=== PATIENT | female | born 1960 | race Caucasian/White ===

== ENCOUNTER 2018-12-20 13:15 | Emergency (ER) | payer OTHER, MEDICAID, SELFPAY ==
[2018-12-20 13:31] VITALS: BP 150/92; PULSE 94; RESP 20; TEMP 37.4; O2SAT 96; BMI 22.7
[2018-12-20 13:47] VITALS: BP 157/84; PULSE 109; RESP 18; O2SAT 99
--- NOTE | 2018-12-20 13:53 | ED_ITS ---
HPI - Skin/Abscess/Foreign Bdy <Myah Navarro, PER DIEM NURSE-BC - Last Filed: 12/20/18 19:43> General Chief complaint: Skin/Abscess/Foreign Body Stated complaint: states pain bump under lt ear x 1month Time Seen by Provider: 12/20/18 13:41 Source: patient Mode of arrival: ambulatory History of Present Illness HPI narrative: Patient is a 58-year-old female who presents with her caregiver for chief complaint of a bump under her right ear. She states she has been being treated for parotitis And has taken several different antibiotics. Of note she does have a seizure history disorder and is on phenobarbital as well as Lamictal. She presented and told the triage nurse that she has seizures in waiting rooms. After stating that she has seizures when she is in the waiting room, patient stated she felt a seizure coming on and was brought back to the emergency department. She states she has been having fevers that are un recorded, but none today. She states that she is having so much diarrhea she has difficulty with her medications. She states she has been having more seizures since this started. She states that they called would be, and the ER physician directed them to come to this facility as we have ENT on-call. The patient did not have any incontinence of bowel or bladder. Related Data Home Medications Medication Instructions Recorded Confirmed [id number]-[id number] 1 - 2 tab PO PRN PRN #0 06/15/17 [Excedrin Extra Strength] fluoxetine 80 mg PO QDAY #0 06/15/17 gabapentin 800 mg PO BID #0 06/15/17 lamotrigine [Lamictal] 200 mg PO BID #0 06/15/17 omeprazole 20 mg PO QDAY #0 06/15/17 phenobarbital 12.5 ml PO BID #0 06/15/17 Allergies Allergy/AdvReac Type Severity Reaction Status Date / Time phenytoin [From DILANTIN] Allergy Severe Rash Verified 12/20/18 13:30 carbamazepine [From TEGRETOL] Allergy Intermediate RASH Verified 12/20/18 13:30 ibuprofen [IBUPROFEN] Allergy Mild RASH AND Verified 12/20/18 13:30 STOMACH PAIN ketorolac [From TORADOL] Allergy Mild RASH Verified 12/20/18 13:30 cephalexin [CEPHALEXIN] Allergy Unknown Verified 12/20/18 13:30 divalproex sodium Allergy Unknown Verified 12/20/18 13:30 [From DEPAKOTE] erythromycin base Allergy Unknown Verified 12/20/18 13:30 [ERYTHROMYCIN BASE] naproxen [NAPROXEN] Allergy Unknown Verified 12/20/18 13:30 Review of Systems <LYNN Brownlee - Last Filed: 12/20/18 19:43> Review of Systems GENERAL: Denies chills, fatigue, malaise, fever, sweats. HEENT: See HPI RESPIRATORY: Denies dyspnea, cough, wheezing, hemoptysis, sputum. CARDIOVASCULAR: Denies chest pain, palpitations, orthopnea, edema, GASTROINTESTINAL: Denies nausea, vomiting, abdominal pain, diarrhea, constipation, melena. : Denies dysuria, frequency, incontinence, hematuria, urinary retention. MUSCULOSKELETAL: denies weakness, joint pain, or bony pain SKIN: Denies rash, skin lesions, or other NEUROLOGIC: see HPI PSYCHIATRIC: No concerning psychosocial issues. 12 point review of systems is negative except for those stated above PFSH <LYNN Brownlee - Last Filed: 12/20/18 19:43> Social History Smoking Status: Current every day smoker Social History Smoking Status: Current every day smoker Exam <LYNN Brownlee - Last Filed: 12/20/18 19:43> Narrative Exam Narrative: GENERAL: This is a well-nourished, well-developed patient, l jesús on stretcher HEAD: Atraumatic. Normocephalic. No temporal or scalp tenderness. EYES: Pupils equal round and reactive. Extraocular motions intact. No scleral icterus. No injection or drainage. ENT: Nose without bleeding, purulent drainage or septal hematoma. Throat without erythema, tonsillar hypertrophy or exudate. Uvula midline. Airway patent. no blood observed in oropharynx. No laceration to tongue. swelling noted right parotid gland. NECK: Trachea midline. No JVD or lymphadenopathy. Supple, nontender, no meningeal signs. CARDIOVASCULAR: Regular rate and rhythm RESPIRATORY: Clear to auscultation. Breath sounds equal bilaterally. No wheezes, rales, or rhonchi. No cough. No stridor. No increased respiratory effort. GASTROINTESTINAL: Abdomen soft, non-tender, nondistended. No hepato- splenomegaly, or palpable masses. No guarding. EXTREMITIES: No clubbing, cyanosis, or edema. No joint tenderness, effusion, or edema noted. BACK: Nontender without deformity or crepitance. No flank tenderness. NEURO: AOx3. Following all commands. No incontinence noted. Strength is equal upper and lower extremities bilaterally. SKIN: No rash or erythema. Initial Vital Signs Initial Vital Signs: Vital Signs Temperature 99.4 F 12/20/18 13:31 Pulse Rate 94 H 12/20/18 13:31 Respiratory Rate 20 12/20/18 13:31 Blood Pressure 150/92 H 12/20/18 13:31 Pulse Oximetry 96 12/20/18 13:31 <Myah Singh DO - Last Filed: 12/22/18 07:18> Initial Vital Signs Initial Vital Signs: Vital Signs Temperature 99.4 F 12/20/18 13:31 Pulse Rate 94 H 12/20/18 13:31 Respiratory Rate 20 12/20/18 13:31 Blood Pressure 150/92 H 12/20/18 13:31 Pulse Oximetry 96 12/20/18 13:31 Course <AJ Brownlee-BC - Last Filed: 12/20/18 19:43> Course Narrative: I checked with the patient several times throughout her emergency department stay. She repeatedly requested 2 mg of IV Dilaudid. I discussed with the patient that I was not having 2 mg IV Dilaudid on top of the Ativan that she received for her seizure activity. She pointed her tongue at me, to illustrate a bite ramses. There was no blood observed in her oropharynx and no laceration noted to her tongue. Records were obtained from [facility], and Solu-Medrol was given for the swelling noted on her left parotid gland. Prior to receiving imaging results, the patient stated that she wanted to leave and go to another facility, where she could receive IV Ativan along with IV Dilaudid. She requested another provider who would give her IV Ativan with IV Dilaudid. Dr Singh Stated that she supported not giving IV Dilaudid on top of IV Ativan. I discussed with the patient prior to her leaving against medical advice, that we are waiting on lab work, imaging reports from [facility], records from would be and possible imaging and consult here. The patient elected to leave against medical advice. Discussed risk of or worsening. Orders Ordered: Discontinued Medications Sodium Chloride (Normal Saline 0.9%) 1,000 mls @ 1,000 mls/hr IV BOLUS ONE Stop: 12/20/18 15:04 Last Infusion: 12/20/18 15:10 Dose: 0 mls/hr Admin: 12/20/18 14:06 Dose: 1,000 mls/hr Lorazepam (Ativan) 1 mg IV NOW ONE Stop: 12/20/18 14:05 Last Admin: 12/20/18 14:06 Dose: 1 mg Methylprednisolone (Solu-Medrol 125 Mg Vial) 125 mg IV NOW ONE Stop: 12/20/18 15:10 Last Admin: 12/20/18 15:13 Dose: 125 mg Vital Signs - 8 hr 12/20/18 13:31 12/20/18 13:47 12/20/18 15:29 Temperature 99.4 F Pulse Rate 94 H 109 H 88 Respiratory Rate 20 18 18 Blood Pressure 150/92 H 139/69 Blood Pressure [Right Arm] 157/84 H Pulse Oximetry 96 99 97 <Myah Singh, DO - Last Filed: 12/22/18 07:18> Orders Ordered: Discontinued Medications Sodium Chloride (Normal Saline 0.9%) 1,000 mls @ 1,000 mls/hr IV BOLUS ONE Stop: 12/20/18 15:04 Last Infusion: 12/20/18 15:10 Dose: 0 mls/hr Admin: 12/20/18 14:06 Dose: 1,000 mls/hr Lorazepam (Ativan) 1 mg IV NOW ONE Stop: 12/20/18 14:05 Last Admin: 12/20/18 14:06 Dose: 1 mg Methylprednisolone (Solu-Medrol 125 Mg Vial) 125 mg IV NOW ONE Stop: 12/20/18 15:10 Last Admin: 12/20/18 15:13 Dose: 125 mg Vital Signs - 8 hr 12/20/18 13:31 12/20/18 13:47 12/20/18 15:29 Temperature 99.4 F Pulse Rate 94 H 109 H 88 Respiratory Rate 20 18 18 Blood Pressure 150/92 H 139/69 Blood Pressure [Right Arm] 157/84 H Pulse Oximetry 96 99 97 MDM - Skin/Abscess/Foreign Bdy <Myah Infantemer, PER DIEM NURSE-BC - Last Filed: 12/20/18 19:43> Lab Data Result diagrams: 12/20/18 14:00 12/20/18 14:00 Lab Results 12/20/18 12/20/18 12/20/18 Range/Units 14:00 14:00 14:00 WBC 9.9 (4.5-11.0) X10^3/uL RBC 4.09 (4.0-5.2) X10^6/uL Hgb 12.0 (12.0-16.0) g/dL Hct 36.7 (36-46) % MCV 89.8 (80-100) fL MCH 29.3 (26-34) PG MCHC 32.7 (30-36) % RDW 13.5 (11.6-14.8) % Plt Count 405 H (150-400) X10^3/uL Neut % (Auto) 67.0 (50-75) % Lymph % (Auto) 20.5 L (25-40) % [place] % (Auto) 7.7 (3-14) % Eos % (Auto) 3.5 (2-4) % Baso % (Auto) 1.3 (0-2) % Neut # (Auto) 6600 (5960-6077) /uL Lymph # (Auto) 2000 (0533-2437) /uL [place] # (Auto) 800 (0-900) /uL Eos # (Auto) 300 (0-450) /uL Baso # (Auto) 100 (0-100) /uL PT 11.3 (10.1-12.7) SECONDS INR 1.0 (0.9-1.3) APTT 29 (26.4-36.2) SECONDS Sodium 138 (137-145) mmol/L Potassium 4.2 (3.4-5.1) mmol/L Chloride 101 (98-107) mmol/L Carbon Dioxide 25 (22-32) mmol/L BUN 10 (7-17) mg/dL Creatinine 0.60 (0.52-1.04) mg/dL Estimated GFR > 60.0 (>60) mL/min BUN/Creatinine Ratio 16.7 (6-22) Glucose 94 (70-100) mg/dL Calcium 9.3 (8.4-10.2) mg/dL Total Bilirubin 0.3 (0.2-1.3) mg/dL AST 21 (14-36) IU/L ALT 17 (9-52) IU/L Alkaline Phosphatase 114 (38-126) U/L Total Protein 8.1 (6.3-8.2) g/dL Albumin 4.6 (3.5-5.0) g/dL Globulin 3.5 (1.7-4.1) g/dL Albumin/Globulin Ratio 1.3 (1.0-2.8) Lipase 82 (23-300) U/L Prolactin 15.6 (3.0-18.6) ng/mL Urine Opiates Screen (Negative) Ur Oxycodone Screen (Negative) Urine Methadone Screen (Negative) Ur Barbiturates Screen (Negative) U Tricyclic Antidepress (Negative) Ur Phencyclidine Scrn (Negative) Ur Amphetamines Screen (Negative) U Methamphetamines Scrn (Negative) Ur MDMA Scrn (Ecstasy) (Negative) U Benzodiazepines Scrn (Negative) Urine Cocaine Screen (Negative) U Marijuana (THC) Screen (Negative) Ethyl Alcohol mg/dL 12/20/18 12/20/18 Range/Units 14:00 15:07 WBC (4.5-11.0) X10^3/uL RBC (4.0-5.2) X10^6/uL Hgb (12.0-16.0) g/dL Hct (36-46) % MCV (80-100) fL MCH (26-34) PG MCHC (30-36) % RDW (11.6-14.8) % Plt Count (150-400) X10^3/uL Neut % (Auto) (50-75) % Lymph % (Auto) (25-40) % [place] % (Auto) (3-14) % Eos % (Auto) (2-4) % Baso % (Auto) (0-2) % Neut # (Auto) (7306-7877) /uL Lymph # (Auto) (8718-9174) /uL [place] # (Auto) (0-900) /uL Eos # (Auto) (0-450) /uL Baso # (Auto) (0-100) /uL PT (10.1-12.7) SECONDS INR (0.9-1.3) APTT (26.4-36.2) SECONDS Sodium (137-145) mmol/L Potassium (3.4-5.1) mmol/L Chloride (98-107) mmol/L Carbon Dioxide (22-32) mmol/L BUN (7-17) mg/dL Creatinine (0.52-1.04) mg/dL Estimated GFR (>60) mL/min BUN/Creatinine Ratio (6-22) Glucose (70-100) mg/dL Calcium (8.4-10.2) mg/dL Total Bilirubin (0.2-1.3) mg/dL AST (14-36) IU/L ALT (9-52) IU/L Alkaline Phosphatase (38-126) U/L Total Protein (6.3-8.2) g/dL Albumin (3.5-5.0) g/dL Globulin (1.7-4.1) g/dL Albumin/Globulin Ratio (1.0-2.8) Lipase (23-300) U/L Prolactin (3.0-18.6) ng/mL Urine Opiates Screen Positive H (Negative) Ur Oxycodone Screen Positive H (Negative) Urine Methadone Screen Negative (Negative) Ur Barbiturates Screen Positive H (Negative) U Tricyclic Antidepress Negative (Negative) Ur Phencyclidine Scrn Positive H (Negative) Ur Amphetamines Screen Positive H (Negative) U Methamphetamines Scrn Positive H (Negative) Ur MDMA Scrn (Ecstasy) Negative (Negative) U Benzodiazepines Scrn Positive H (Negative) Urine Cocaine Screen Negative (Negative) U Marijuana (THC) Screen Positive H (Negative) Ethyl Alcohol < 10 mg/dL Urine Dip Bedside Urine Glucose Negative Bedside Urine Bilirubin - Negative Bedside Urine Ketone - Negative Urine Specific [place] 1.020 Bedside Urine Occult Blood - Negative Bedside Urine pH 6.0 Bedside Urine Protein +/- 15 Bedside Urine Urobilinogen - Negative Bedside Urine Nitrite - Negative Bedside Urine Leukocytes - Negative Esterase MDM Narrative Medical decision making narrative: The patient is a 58-year-old female who presents with a caregiver with chief complaint of needing to see ENT. She stated she had seizure activity in the waiting room, but has a history of seizures and was given Ativan. She decided to leave against medical advice when I would not give her IV Dilaudid on top of her Ativan. I discussed that we did not have her records at that point from the outside facility she has been seen at, we did not have her labs back yet, but she stated she wanted to go elsewhere to get IV pain medication at this point time. I did offer her other modalities of pain control but she stated she only wanted Dilaudid. Of note she had a very positive drug screen. She did sign an against Medical advice form. We did discuss risk of worsening, . Sherrie ESTRADA was witnessed to conversation. Patient left against medical advice. <Myah Singh, DO - Last Filed: 12/22/18 07:18> Lab Data Lab Results 12/20/18 12/20/18 12/20/18 Range/Units 14:00 14:00 14:00 WBC 9.9 (4.5-11.0) X10^3/uL RBC 4.09 (4.0-5.2) X10^6/uL Hgb 12.0 (12.0-16.0) g/dL Hct 36.7 (36-46) % MCV 89.8 (80-100) fL MCH 29.3 (26-34) PG MCHC 32.7 (30-36) % RDW 13.5 (11.6-14.8) % Plt Count 405 H (150-400) X10^3/uL Neut % (Auto) 67.0 (50-75) % Lymph % (Auto) 20.5 L (25-40) % [place] % (Auto) 7.7 (3-14) % Eos % (Auto) 3.5 (2-4) % Baso % (Auto) 1.3 (0-2) % Neut # (Auto) 6600 (2328-6470) /uL Lymph # (Auto) 2000 (7268-9813) /uL [place] # (Auto) 800 (0-900) /uL Eos # (Auto) 300 (0-450) /uL Baso # (Auto) 100 (0-100) /uL PT 11.3 (10.1-12.7) SECONDS INR 1.0 (0.9-1.3) APTT 29 (26.4-36.2) SECONDS Sodium 138 (137-145) mmol/L Potassium 4.2 (3.4-5.1) mmol/L Chloride 101 (98-107) mmol/L Carbon Dioxide 25 (22-32) mmol/L BUN 10 (7-17) mg/dL Creatinine 0.60 (0.52-1.04) mg/dL Estimated GFR > 60.0 (>60) mL/min BUN/Creatinine Ratio 16.7 (6-22) Glucose 94 (70-100) mg/dL Calcium 9.3 (8.4-10.2) mg/dL Total Bilirubin 0.3 (0.2-1.3) mg/dL AST 21 (14-36) IU/L ALT 17 (9-52) IU/L Alkaline Phosphatase 114 (38-126) U/L Total Protein 8.1 (6.3-8.2) g/dL Albumin 4.6 (3.5-5.0) g/dL Globulin 3.5 (1.7-4.1) g/dL Albumin/Globulin Ratio 1.3 (1.0-2.8) Lipase 82 (23-300) U/L Prolactin 15.6 (3.0-18.6) ng/mL Urine Opiates Screen (Negative) Ur Oxycodone Screen (Negative) Urine Methadone Screen (Negative) Ur Barbiturates Screen (Negative) U Tricyclic Antidepress (Negative) Ur Phencyclidine Scrn (Negative) Ur Amphetamines Screen (Negative) U Methamphetamines Scrn (Negative) Ur MDMA Scrn (Ecstasy) (Negative) U Benzodiazepines Scrn (Negative) Urine Cocaine Screen (Negative) U Marijuana (THC) Screen (Negative) Ethyl Alcohol mg/dL 12/20/18 12/20/18 Range/Units 14:00 15:07 WBC (4.5-11.0) X10^3/uL RBC (4.0-5.2) X10^6/uL Hgb (12.0-16.0) g/dL Hct (36-46) % MCV (80-100) fL MCH (26-34) PG MCHC (30-36) % RDW (11.6-14.8) % Plt Count (150-400) X10^3/uL Neut % (Auto) (50-75) % Lymph % (Auto) (25-40) % [place] % (Auto) (3-14) % Eos % (Auto) (2-4) % Baso % (Auto) (0-2) % Neut # (Auto) (8085-0552) /uL Lymph # (Auto) (4305-0092) /uL [place] # (Auto) (0-900) /uL Eos # (Auto) (0-450) /uL Baso # (Auto) (0-100) /uL PT (10.1-12.7) SECONDS INR (0.9-1.3) APTT (26.4-36.2) SECONDS Sodium (137-145) mmol/L Potassium (3.4-5.1) mmol/L Chloride (98-107) mmol/L Carbon Dioxide (22-32) mmol/L BUN (7-17) mg/dL Creatinine (0.52-1.04) mg/dL Estimated GFR (>60) mL/min BUN/Creatinine Ratio (6-22) Glucose (70-100) mg/dL Calcium (8.4-10.2) mg/dL Total Bilirubin (0.2-1.3) mg/dL AST (14-36) IU/L ALT (9-52) IU/L Alkaline Phosphatase (38-126) U/L Total Protein (6.3-8.2) g/dL Albumin (3.5-5.0) g/dL Globulin (1.7-4.1) g/dL Albumin/Globulin Ratio (1.0-2.8) Lipase (23-300) U/L Prolactin (3.0-18.6) ng/mL Urine Opiates Screen Positive H (Negative) Ur Oxycodone Screen Positive H (Negative) Urine Methadone Screen Negative (Negative) Ur Barbiturates Screen Positive H (Negative) U Tricyclic Antidepress Negative (Negative) Ur Phencyclidine Scrn Positive H (Negative) Ur Amphetamines Screen Positive H (Negative) U Methamphetamines Scrn Positive H (Negative) Ur MDMA Scrn (Ecstasy) Negative (Negative) U Benzodiazepines Scrn Positive H (Negative) Urine Cocaine Screen Negative (Negative) U Marijuana (THC) Screen Positive H (Negative) Ethyl Alcohol < 10 mg/dL Urine Dip Bedside Urine Glucose Negative Bedside Urine Bilirubin - Negative Bedside Urine Ketone - Negative Urine Specific [place] 1.020 Bedside Urine Occult Blood - Negative Bedside Urine pH 6.0 Bedside Urine Protein +/- 15 Bedside Urine Urobilinogen - Negative Bedside Urine Nitrite - Negative Bedside Urine Leukocytes - Negative Esterase Discharge Plan Departure Patient Disposition: Left Against Medical Advice Clinical Impression: Left against medical advice Discharge Date/Time: 12/20/18 15:31 Interventions: ED Discharge Assessment Last Done: 12/20/18 15:29 Prescriptions: No Action lamotrigine [Lamictal] 100 MG tablet 200 mg PO BID Qty: 0 RF: 0 phenobarbital 20 MG/5 ML elixir 12.5 ml PO BID Qty: 0 RF: 0 fluoxetine 20 MG capsule 80 mg PO QDAY Qty: 0 RF: 0 omeprazole 20 MG tablet,delayed release (DR/EC) 20 mg PO QDAY Qty: 0 RF: 0 [id number] [Excedrin Extra Strength] 1 EACH tablet 1 - 2 tab PO PRN PRNQty: 0 RF: 0 gabapentin 800 MG tablet 800 mg PO BID Qty: 0 RF: 0 Stand Alone Forms: Against Medical Advice <Myah Singh DO - Last Filed: 12/22/18 07:18> Cosign ED Attending Cosignature Attestation: I was immediately available in the department for consultation. This documentation has been reviewed and I agree with assessment and plan. Supervised by Myah Singh DO
[2018-12-20] MEDS: SODIUM CHLORIDE 0.9% 1,000 ML 1000 ML IV (14:06)
[2018-12-20] MEDS: LORazepam 2 MG/ML SYRINGE 1 MG IV (14:06)
--- NOTE | 2018-12-20 14:15 | PC.NURSE ---
Pt brought to room 11 from triage. Had tonic clonic like movements for less than 30 seconds. self resolved. Indicated her jaw was 'locked' on her socorro. No postictal phase, no incontinence, no bleeding in mouth. Medicated w/ ativan and w/in seconds jaw released. Provider in to re-evaluate. Pt a/o x 4 at this time.
[2018-12-20 14:18] LABS: Add Manual Diff / Slide Review NO; Basophils Absolute Auto 100 /uL (0-100); Basophils Percent Auto 1.3 % (0-2); Eosinophils Absolute Auto 300 /uL (0-450); Eosinophils Percent Auto 3.5 % (2-4); Hematocrit 36.7 % (36-46); Lymphocytes Absolute Auto 2000 /uL (1100-4500); Lymphocytes Percent Auto 20.5 % (25-40); Mean Corpuscular HGB Conc 32.7 % (30-36); Mean Corpuscular Hemoglobin 29.3 PG (26-34); Mean Corpuscular Volume 89.8 fL (80-100); Monocytes Absolute Auto 800 /uL (0-900); Monocytes Percent Auto 7.7 % (3-14); Neutrophils Absolute Auto 6600 /uL (1500-7000); Platelet Count 405 X10^3/uL (150-400); Red Blood Cell Count 4.09 X10^6/uL (4.0-5.2); Red Cell Distribution Width 13.5 % (11.6-14.8); White Blood Cell Count 9.9 X10^3/uL (4.5-11.0)
[2018-12-20 14:21] LABS: HEMOLYSIS < 15 (0-50)
[2018-12-20 14:23] LABS: Prothrombin Time 11.3 SECONDS (10.1-12.7)
[2018-12-20 14:26] LABS: Ethanol (ETOH) < 10 mg/dL; PTT Partial Thromboplastin Tim 29 SECONDS (26.4-36.2)
[2018-12-20 14:27] LABS: Alanine Aminotransferase 17 IU/L (9-52); Albumin 4.6 g/dL (3.5-5.0); Albumin Globulin Ratio 1.3 (1.0-2.8); Alkaline Phosphatase 114 U/L (38-126); Aspartate Aminotransferase 21 IU/L (14-36); BUN Creatinine Ratio 16.7 (6-22); Bilirubin Total 0.3 mg/dL (0.2-1.3); Blood Urea Nitrogen 10 mg/dL (7-17); Calcium 9.3 mg/dL (8.4-10.2); Carbon Dioxide 25 mmol/L (22-32); Chloride 101 mmol/L (98-107); Estimated Glomerular Filt Rate > 60.0 mL/min (>60); Globulin 3.5 g/dL (1.7-4.1); Glucose 94 mg/dL (70-100); Lipase 82 U/L (23-300); Potassium 4.2 mmol/L (3.4-5.1); Sodium 138 mmol/L (137-145); Total Protein 8.1 g/dL (6.3-8.2)
--- NOTE | 2018-12-20 14:42 | PC.NURSE ---
Pt states sent here to see ENT. Being worked up for nodules/lumps on neck. Requests 2mg of dilaudid now per ANNUAL GIVING DIRECTOR.
[2018-12-20 14:45] LABS: Prolactin 15.6 ng/mL (3.0-18.6)
[2018-12-20] MEDS: methylPREDNISolone 125 MG/2 ML VIAL IV (15:13)
--- NOTE | 2018-12-20 15:22 | PC.NURSE ---
Pt states that she wants 2mg of dilaudid. It was explained and is explained again that the provider will not be giving dilaudid on top of the lorazapam she already recieved. It was explained that the steroid she received would shrink down the swelling she was having and that dilaudid would not help with that. It is explained that we do not have her records from [facility] and are currently trying to figure out the best care for her situation. She states she will wait to see another provider and it is explained that there wouldnt be another provider to see her to give dilaudid. It is again explained that they would not be giving dilaudid as to change providers to get narcotic pain meds was not an acceptable practice. States will go back to [facility] to get her dilaudid.
[2018-12-20 15:25] LABS: Urine Tetrahydrocannabinol Positive (Negative)
[2018-12-20 15:28] LABS: Urine Amphetamines Positive (Negative); Urine Barbiturates Positive (Negative); Urine Benzodiazepines Positive (Negative); Urine Cocaine Negative (Negative); Urine MDMA Negative (Negative); Urine Methamphetamines Positive (Negative); Urine Morphine/Opi cutoff 2000 Positive (Negative); Urine Phencyclidine Positive (Negative)
[2018-12-20 15:29] VITALS: BP 139/69; PULSE 88; RESP 18; O2SAT 97
[2018-12-20 15:29] LABS: Urine Methadone Negative (Negative); Urine Oxycodone Positive (Negative); Urine Tricyclic Antidepressant Negative (Negative)
== END 2018-12-20 15:31 | disposition left against medical advice (07) ==
LOC: ED 14:43
PROVIDERS: Emergency Provider Nurse Practitioner Family; Family Provider Nurse Practitioner Family; PCP Nurse Practitioner Family
DX: R22.1 Localized swelling, mass and lump, neck (principal)
CPT/HCPCS: 36591; 80053; 80184; 80305; 80320; 81003; 83690; 84146; 85025; 85610; 85730; 93005; 96361; 96374; 96375; 99283; 99284; J2060; J2930

== ENCOUNTER 2025-05-24 23:21 | Emergency (ER) | payer OTHER, MEDICAID, SELFPAY ==
[2025-05-24 23:27] VITALS: PULSE 76; RESP 16; O2SAT 89
[2025-05-24 23:28] VITALS: BP 107/61; PULSE 75; RESP 16
[2025-05-24 23:30] VITALS: BP 93/52; PULSE 74; RESP 18; RESP 21; O2SAT 95; BMI 25.8
--- NOTE | 2025-05-24 23:32 | EKG_ITS ---
[address] [address] Test Date: 2025-05-24 Pat Name: Romina Walters Department: Room: Gender: Female [employer] Operator: CHARISSE : 1960 Requested By: Order Number: [id number] Reading MD: Rony Ellis Measurements Intervals [place] Rate: 74 P: 45 FL: 120 QRS: 48 QRSD: 74 T: 56 QT: 402 QTc: 446 Interpretive Statements Normal sinus rhythm Electronically Signed On 05-26-2025 15:01:36 PDT by Rony Ellis
[2025-05-24 23:48] VITALS: BP 103/67; PULSE 78
[2025-05-25] VITALS: BP 108/68; PULSE 72; RESP 22; O2SAT 94
--- NOTE | 2025-05-25 | PC.NURSE ---
field contact technician assisted with pt hygiene and place brief and cleaned up poop at this time.
--- NOTE | 2025-05-25 00:04 | PC.NURSE ---
No Release from Hospice noted on pt chart. Attempted to contact Hospice, however nurse arrived to facility to speak with Pt in person. At this time bartender helper is at bedside talking with pt.
[2025-05-25 00:30] VITALS: PULSE 75; RESP 26
[2025-05-25 00:31] VITALS: BP 103/60; PULSE 75; RESP 30
--- NOTE | 2025-05-25 00:45 | ED_ITS ---
HPI - Weakness General Chief complaint: Weakness Stated complaint: Weakness - On Hospice Time Seen by Provider: 05/25/25 00:38 Source: EMS Mode of arrival: EMS History of Present Illness HPI Narrative: Patient is a 64-year-old female on hospice for history of metastatic brain cancer is brought in by medics for evaluation of confusion. They state that she had called and told them that she had for fentanyl patches on and had syncopized. At time of evaluation patient is moving all 4 extremities spontaneously she is alert to self place and time, she states that she made a mistake by calling 911, she states that she knew she was supposed to call ?somebody but could not remember the number due to the fact that she was having some mild headaches, but she states that she currently just wants to go home. She states that she understands that she is on hospice care and she states that she just wants to go home. She does not want anything else done. Related Data Home Medications ?Medication ?Instructions ?Recorded ?Confirmed [id number] 250 1 - 2 tab PO PRN WI N ##0 06/15/17 mg-250 mg-65 mg tablet (Excedrin Extra Strength) fluoxetine 20 mg capsule 80 mg PO QDAY ##0 06/15/17 gabapentin 800 mg tablet 800 mg PO BID ##0 06/15/17 lamotrigine 100 mg tablet 200 mg PO BID ##0 06/15/17 (Lamictal) omeprazole 20 mg tablet,delayed 20 mg PO QDAY ##0 06/04 12/21 release phenobarbital 20 mg/5 mL (4 mg/mL) 12.5 ml PO BID ##0 06/15/17 oral elixir Allergies Allergy/AdvReac Type Severity Reaction Status Date / Time phenytoin (From DILANTIN) Allergy Severe Rash Verified 12/20/18 13:30 carbamazepine (From TEGRETOL) Allergy Intermediate RASH Verified 12/20/18 13:30 ibuprofen (IBUPROFEN) Allergy Mild RASH AND Verified 12/20/18 13:30 STOMACH PAIN ketorolac (From TORADOL) Allergy Mild RASH Verified 12/20/18 13:30 cephalexin (CEPHALEXIN) Allergy Unknown Verified 12/20/18 13:30 divalproex sodium (From Allergy Unknown Verified 12/20/18 13:30 DEPAKOTE) erythromycin base Allergy Unknown Verified 12/20/18 13:30 (ERYTHROMYCIN BASE) naproxen (NAPROXEN) Allergy Unknown Verified 12/20/18 13:30 Review of Systems Review of Systems Narrative: General: Positive generalized weakness, on hospice Denies fever, chills, weight loss HEENT: Denies headache, eye drainage, eye irritation, head trauma, sore throat, voice change Cardiovascular: Denies any chest pain, palpitations, tachycardia Respiratory: Denies any shortness of breath, cough, wheeze, stridor GI/: Denies any abdominal pain, nausea, vomiting, diarrhea, bright red blood per rectum, melanotic stools, urinary frequency, urinary retention, dysuria, hematuria MSK: Denies any joint pain, muscle pains, swelling Skin: Denies any rashes, lesions, discoloration Neuro: Denies any headache, lightheadedness, dizziness, fainting, weakness Psych: Denies SI/HI Exam Narrative Exam Narrative: General: Cooperative, well-developed, not in acute distress HEENT: Normocephalic, atraumatic, PERRLA, normal sclera, eyelids normal Neck: Active full range of motion, atraumatic Chest: Normal to inspection, negative crepitus, no overlying erythema ecchymosis Respiratory: Normal respiratory effort, not in acute respiratory distress, clear to auscultation bilaterally negative cough, wheeze, tachypnea, rhonchi, rales Cardiology: Regular rate rhythm negative gallop, murmur, rubs GI/: No tenderness to palpation, soft, non rigid, normal to inspection, exam deferred MSK: Full active range of motion in all 4 extremities, atraumatic, no tenderness to palpation of any bony prominences Skin: No rashes or lesions noted Neuro: Patient history of dementia, is alert to self place and time, moving all 4 extremities spontaneously Psych: Cooperative, negative suicidal or homicidal ideations Initial Vital Signs Initial Vital Signs: Vital Signs Pulse Rate 74 05/24/25 23:30 Respiratory Rate 18 05/24/25 23:30 Blood Pressure 93/52 L 05/24/25 23:30 Pulse Oximetry 95 05/24/25 23:30 Oxygen Delivery Method Room Air 05/24/25 23:30 Course Vital Signs Vital signs: Vital Signs - 8 hr 05/24/25 23:30 Pulse Rate 74 Respiratory Rate 18 Blood Pressure 93/52 L Pulse Oximetry 95 Oxygen Delivery Method Room Air MDM - Weakness Differential Diagnosis Differential diagnosis: Likely other (Hospice) MDM Narrative Medical decision making narrative: 64-year-old female with a history of metastatic disease to the brain, on hospice brought in by medics for evaluation of confusion possible syncope. Patient at time of evaluation moving all 4 extremities is alert to self place and time, she states that she just wants to go home, she states that she does know she made a mistake by calling 911, however she states that she did not remember the number to call for hospice team, she states that she just wants to go home. I did have a discussion with hospice nurse as well as the physician who is on-call with the hospice team ([phone]), they state that they are aware of the patient and state that patient should not have called 911, did not have a release of hospice, hospice nurse was here at bedside did evaluate the patient, I did have a lengthy discussion with the team at was decided patient can be discharged back to home no further workup will be done here. Discharge Plan Departure Patient Disposition: Home Clinical Impression: Hospice care Activity Restrictions/Additional Instructions: Please call your hospice team if you have any issues or concerns in the future Prescriptions: No Action lamotrigine [Lamictal] 100 MG tablet 200 mg PO BID Qty: 0 phenobarbital 20 MG/5 ML elixir 12.5 ml PO BID Qty: 0 fluoxetine 20 MG capsule 80 mg PO QDAY Qty: 0 omeprazole 20 MG tablet,delayed release (DR/EC) 20 mg PO QDAY Qty: 0 [id number]-[id number] [Excedrin Extra Strength] 1 EACH tablet 1 - 2 tab PO PRN PRNQty: 0 gabapentin 800 MG tablet 800 mg PO BID Qty: 0 Referrals: Lexis Clemens ARNP [Primary Care Provider, Medical] Stand Alone Forms: Patient Portal/API
--- NOTE | 2025-05-25 00:48 | PC.NURSE ---
Per Dr. Morelos pt is hospice and will return home on hospice care per Dr. Pool. Hospice nurse sat an spoke with pt for a little while to remind her about process. During visit pt had a slight seizure, able to respond after less and 15 seconds. ED techs placed seizure pads on bed and pt is currently laying comfortably.
== END 2025-05-25 02:54 | disposition home or self-care (01) ==
PROVIDERS: Emergency Provider Student in an Organized Health Care Education/Training Program; Family Provider Nurse Practitioner Family; PCP Nurse Practitioner Family
DX: C79.31 Secondary malignant neoplasm of brain (principal); Z51.5 Encounter for palliative care; R41.0 Disorientation, unspecified
CPT/HCPCS: 93005; 99281; 99283